=== PATIENT | female | born 1950 | race African-American/Black ===

== ENCOUNTER → 2017-01-10 | Outpatient (CLI) | payer OTHER, BC ==
[~2017-01-10] MED LIST: ACETAMINOPHEN650 M5 PO; ALPHA LIPOIC A200 M1 PO; CELEBREX 200 M200 M1 PO; COMPAZINE10 M2 PO; COZAAR 50 MG TA50 M2 PO; CYMBALTA30 MG PO; FEMARA2.5 MG PO; ISOSORBIDE DINI20 M2 PO; LASIX 20 MG TAB20 MG PO; LIDOCAINE-PRILO30 GM TRANSDERM; LIPITOR40 MG PO; LOSARTAN-HCTZ1 EACH PO; MAGNESIUM400 M1 PO; MIRALAX17 GM PO; MULTIVITAMINS PO; NORVASC5 MG PO; ONDANSETRON HCL8 M2 PO; SAVAYSA60 MG PO; SENOKOT-S1 TA2 PO; SIMVASTATIN40 MG PO; TOPROL XL100 MG PO
[2017-01-10 11:00] VITALS: BP 140/73
[2017-01-10 13:48] VITALS: BP 131/63; BP 147/69
== END ==
LOC: OPONC 11:25
DX: D63.8 Anemia in other chronic diseases classified elsewhere (principal); G43.A1 Cyclical vomiting, in migraine, intractable
CPT/HCPCS: 91030; 95113